=== PATIENT | female | born 1990 | race African-American/Black ===

== ENCOUNTER 2017-12-30 07:11 | Emergency (ER) | payer OTHER ==
[~2017-12-30] VITALS: Ht 157.5 cm; Wt 74.8 kg
[2017-12-30 07:51] LABS: ABSOLUTE NEUTROPHILS 7.4 thou/uL (1.4-8.2); BASOPHILS 0.5 % (0.0-2.0); EOSINOPHILS 0.9 % (0.0-3.0); HEMATOCRIT 38.2 % (37.0-47.0); HEMOGLOBIN 12.5 gm/dL (12.0-15.0); LYMPHOCYTES 19.9 % (24.0-44.0); MCH 27.9 pg (26.0-34.0); MCHC 32.8 g/dL (28.0-37.0); MCV 84.9 fL (80.0-100.0); MONOCYTES 5.3 % (1.0-8.0); PLATELET COUNT 251 thou/uL (150-400); POLYS 73.4 % (36.0-66.0); RDW 14.7 % (10.5-14.5); WBC 10.1 thou/uL (4.0-11.0)
[2017-12-30 08:00] LABS: CALCIUM 9.1 mg/dL (8.5-10.1); CREATININE 0.8 mg/dL (0.6-1.0); POTASSIUM 3.5 mmol/L (3.5-5.1)
[2017-12-30 09:02] LABS: HCO3 20.1 mmol/L (22.0-26.0); PCO2 33.5 mmHg (35.0-45.0); PO2 93.6 mmHg (80.0-100.0); pH 7.395 (7.360-7.450); sO2 97.2 % (92.0-98.0)
== END 2017-12-30 09:49 | disposition home or self-care (01) ==
LOC: ER 07:11
PROVIDERS: Emergency Medicine
DX: R06.00 Dyspnea, unspecified (principal)